=== PATIENT | female | born 2000 | race Two or more races ===

== ENCOUNTER 2023-05-29 22:30 | Observation (INO) | payer MEDICAID ==
[~2023-05-29] VITALS: Ht 154.9 cm; Wt 72.6 kg
[2023-05-30] MEDS ORDERED: LACT. RINGERS/OXYTOCIN 20UNITS 1,000 ML IV ONE (06:34)
[2023-05-30] MEDS ORDERED: LIDOCAINE 2%HCL (LOCAL ANESTH.) INJ 20ML MDV ONE (07:21)
[2023-05-30] MEDS ORDERED: METHYLERGONOVINE MALEATE 0.2 MG/ML AMP IM ONE (07:21)
[2023-05-30] MEDS ORDERED: PHISODERM TOP SOLN 240ML BTL TOP ONE (07:21)
[2023-05-31] MEDS ORDERED: IBU600T PO (02:19)
[2023-05-31] MEDS ORDERED: DOCU-265 PO (02:19)
[2023-05-31] MEDS ORDERED: PREN-96 PO (02:19)
== END 2023-05-30 00:58 | disposition home or self-care (01) ==
LOC: LDRP 22:30
PROVIDERS: ADMIT Obstetrics & Gynecology; ATTEND Obstetrics & Gynecology
DX: O60.03 Preterm labor without delivery, third trimester (principal); O26.893 Other specified pregnancy related conditions, third trimester; R10.9 Unspecified abdominal pain; Z3A.39 39 weeks gestation of pregnancy
CPT/HCPCS: 59025; 81002; 94760; G0378; J2210; J2590

== ENCOUNTER 2023-05-30 06:30 | Inpatient (IN) | payer MEDICAID ==
[~2023-05-30] VITALS: Ht 154.9 cm; Wt 65.8 kg
[2023-05-30] MEDS: LIDOCAINE 2%HCL (LOCAL ANESTH.) INJ 20ML MDV ONE (06:57)
[2023-05-30] MEDS: LACTATED RINGER'S 1,000 ML IV SCH (07:00)
[2023-05-30] MEDS ORDERED: LIDOCAINE 2%HCL (LOCAL ANESTH.) INJ 20ML MDV IJ PRN (07:00)
[2023-05-30] MEDS: METHYLERGONOVINE MALEATE 0.2 MG/ML AMP IM ONE (07:30)
[2023-05-30] MEDS: LACT. RINGERS/OXYTOCIN 20UNITS 500 ML IV ONE ×2 (07:42→07:43)
[2023-05-30] MEDS: PHISODERM TOP SOLN 240ML BTL TOP PRN (07:46)
[2023-05-30] MEDS: WITCH HAZEL-GLYCERIN PAD TOP PRN (07:46)
[2023-05-30] MEDS: DERMOPLAST 60ML BOTTLE TOP PRN (07:46)
[2023-05-30 08:12] LABS: Basophils # (auto) 0.1 10 ^3/uL (0-0.2); Basophils % (auto) 0.4 % (0.0-2.0); Eosinophils # (auto) 0 10 ^3/uL (0-0.8); Eosinophils % (auto) 0.1 % (0.0-7.0); Hemoglobin 12.1 g/dL (12.2-16.2); Lymphocytes # (auto) 1.2 10 ^3/uL (0.4-5.4); Mean Corpuscular Hemoglobin 29.3 pg (28.0-32.0); Mean Corpuscular Hgb Conc. 33.5 g/dL (32.0-36.0); Mean Corpuscular Volume 87.3 fL (80.0-100.0); Monocytes # (auto) 0.6 10 ^3/uL (0-1.3); Monocytes % (auto) 4.1 % (0.0-12.0); Neutrophils % (auto) 87.4 % (37.0-80.0); Red Blood Cells 4.13 10^6/uL (4.0-5.20); Red Cell Distribution Width 13.9 % (11.8-14.3); White Blood Cell 14.9 10^3/uL (4.4-10.8)
[2023-05-30] MEDS ORDERED: ACETAMINOPHEN 325 MG TAB PO PRN (08:15)
[2023-05-30 08:23] LABS: INR 0.92 (0.9-1.15); Partial Thromboplastin Time 30.3 SEC (24.5-34.5); Prothrombin Time 9.7 sec (9.3-11.8)
[2023-05-30 08:32] LABS: Alanine Aminotransferase 12 U/L (7-40); Albumin 3.6 g/dL (3.2-4.8); Alkaline Phosphatase 220 U/L (46-116); Anion Gap 9 (5-15); Aspartate Aminotransferase < 8 U/L (13-40); Calcium 8.8 mg/dL (8.5-10.1); Carbon Dioxide 21 mmol/L (20-30); Chloride 108 mmol/L (98-107); Glucose 82 mg/dL (74-106); Potassium 3.9 mmol/L (3.5-5.1); Sodium 138 mmol/L (136-145)
[2023-05-30 08:33] LABS: Bilirubin, Total 0.3 mg/dL (0.2-1.0); Total Protein 6.2 g/dL (5.7-8.2)
[2023-05-30 08:37] LABS: BUN/Creatinine Ratio 6.9 (10.0-20.0); Blood Urea Nitrogen < 5 mg/dL (9-23)
[2023-05-30 09:15] VITALS: RESP 18
[2023-05-30] MEDS: PRENATAL VITAMIN TAB PO SCH (10:00)
[2023-05-30 11:00] VITALS: BP 121/56; PULSE 88; RESP 16; TEMP 98.4; O2SAT 97
[2023-05-30 15:00] VITALS: BP 124/86; PULSE 104; RESP 16; TEMP 98.6; O2SAT 100
[2023-05-30 19:15] VITALS: BP 124/86; PULSE 80; RESP 16; TEMP 98.7; O2SAT 98
[2023-05-30 19:30] VITALS: BP 103/55; PULSE 80; RESP 17; TEMP 98.7; O2SAT 98
[2023-05-30] MEDS: DOCUSATE SOD 100 MG CAP PO SCH (22:23)
[2023-05-30 23:00] VITALS: BP 103/56; PULSE 67; RESP 17; TEMP 98.2; O2SAT 98
[2023-05-31] MEDS ORDERED: PREN-96 PO (02:19)
[2023-05-31] MEDS ORDERED: DOCU-265 PO (02:19)
[2023-05-31] MEDS ORDERED: IBU600T PO (02:19)
[2023-05-31 03:00] VITALS: BP 106/56; PULSE 68; RESP 17; TEMP 98.3; O2SAT 98
[2023-05-31] MEDS: IBUPROFEN 600 MG TAB PO PRN (05:42)
[2023-05-31 07:00] VITALS: BP 102/56; PULSE 87; RESP 17; TEMP 97.9; O2SAT 96
[2023-05-31 07:26] LABS: Basophils # (auto) 0.1 10 ^3/uL (0-0.2); Basophils % (auto) 0.6 % (0.0-2.0); Eosinophils # (auto) 0.1 10 ^3/uL (0-0.8); Eosinophils % (auto) 0.7 % (0.0-7.0); Hematocrit 37.1 % (36.0-46.0); Hemoglobin 12.4 g/dL (12.2-16.2); Lymphocytes # (auto) 2.3 10 ^3/uL (0.4-5.4); Lymphocytes % (auto) 17.1 % (10.0-50.0); Mean Corpuscular Hemoglobin 29.5 pg (28.0-32.0); Mean Corpuscular Hgb Conc. 33.5 g/dL (32.0-36.0); Mean Corpuscular Volume 88.1 fL (80.0-100.0); Monocytes # (auto) 0.7 10 ^3/uL (0-1.3); Monocytes % (auto) 5.3 % (0.0-12.0); Neutrophils # (auto) 10.5 10 ^3/uL (1.6-8.6); Neutrophils % (auto) 76.3 % (37.0-80.0); Red Blood Cells 4.21 10^6/uL (4.0-5.20); Red Cell Distribution Width 13.7 % (11.8-14.3); White Blood Cell 13.7 10^3/uL (4.4-10.8)
[2023-05-31 08:06] LABS: RPR Non Reactive (Non Reactive)
== END 2023-05-31 12:30 | disposition home or self-care (01) | DRG 542 ==
LOC: LDRP 06:30 → UNDOADMIN 06:30 → LDRP 06:57
PROVIDERS: ADMIT Obstetrics & Gynecology; ATTEND Obstetrics & Gynecology
PROC: 10E0XZZ Delivery of Products of Conception, External Approach (ICD-10-PCS; principal; 2023-05-30)
PROC: 0DQR0ZZ Repair Anal Sphincter, Open Approach (ICD-10-PCS; 2023-05-30)
DX: O76 Abnormality in fetal heart rate and rhythm complicating labor and delivery (principal); O70.20 Third degree perineal laceration during delivery, unspecified; Z37.0 Single live birth; Z3A.39 39 weeks gestation of pregnancy
CPT/HCPCS: 36415; 59025; 59409; 80053; 85025; 85610; 85730; 86592; 86850; 86900; 86901; 94760; 96360; 96361; G0378

== ENCOUNTER → 2023-11-01 | Outpatient (CLI) | payer MEDICAID ==
[~2023-11-01] MED LIST: DOCU-265 PO; IBU600T PO; PREN-96 PO
[2023-11-01 09:07] LABS: Basophils # (auto) 0 10 ^3/uL (0-0.2); Basophils % (auto) 0.6 % (0.0-2.0); Eosinophils # (auto) 0.2 10 ^3/uL (0-0.8); Eosinophils % (auto) 2.5 % (0.0-7.0); Hematocrit 38.6 % (36.0-46.0); Hemoglobin 13.3 g/dL (12.2-16.2); Lymphocytes # (auto) 2.3 10 ^3/uL (0.4-5.4); Lymphocytes % (auto) 32.2 % (10.0-50.0); Mean Corpuscular Hemoglobin 30.1 pg (28.0-32.0); Mean Corpuscular Hgb Conc. 34.5 g/dL (32.0-36.0); Mean Corpuscular Volume 87.3 fL (80.0-100.0); Monocytes # (auto) 0.4 10 ^3/uL (0-1.3); Neutrophils # (auto) 4.3 10 ^3/uL (1.6-8.6); Neutrophils % (auto) 58.7 % (37.0-80.0); Platelet Count (auto) 192 10^3/uL (140-450); Red Blood Cells 4.42 10^6/uL (4.0-5.20); Red Cell Distribution Width 13.2 % (11.8-14.3); White Blood Cell 7.3 10^3/uL (4.4-10.8)
== END | disposition home or self-care (01) ==
LOC: LAB 08:49
PROVIDERS: ATTEND Obstetrics & Gynecology
DX: Z01.419 Encounter for gynecological examination (general) (routine) without abnormal findings (principal)
CPT/HCPCS: 36415; 84702; 85025; 87086

== ENCOUNTER → 2024-06-06 | Outpatient (CLI) | payer MEDICAID ==
[2024-06-06 09:11] LABS: Basophils # (auto) 0 10 ^3/uL (0-0.2); Basophils % (auto) 0.4 % (0.0-2.0); Eosinophils # (auto) 0.2 10 ^3/uL (0-0.8); Hematocrit 40.4 % (36.0-46.0); Hemoglobin 13.7 g/dL (12.2-16.2); Lymphocytes # (auto) 1.7 10 ^3/uL (0.4-5.4); Lymphocytes % (auto) 19.9 % (10.0-50.0); Mean Corpuscular Hemoglobin 29.1 pg (28.0-32.0); Mean Corpuscular Hgb Conc. 33.9 g/dL (32.0-36.0); Mean Corpuscular Volume 85.7 fL (80.0-100.0); Monocytes # (auto) 0.5 10 ^3/uL (0-1.3); Monocytes % (auto) 6.2 % (0.0-12.0); Neutrophils # (auto) 5.9 10 ^3/uL (1.6-8.6); Neutrophils % (auto) 71.5 % (37.0-80.0); Nucleated Red Blood Cells % 0.1 %; Platelet Count (auto) 177 10^3/uL (140-450); Red Blood Cells 4.71 10^6/uL (4.0-5.20); Red Cell Distribution Width 13.3 % (11.8-14.3); White Blood Cell 8.3 10^3/uL (4.4-10.8)
[2024-06-06 09:14] LABS: Urine Bacteria FEW /hpf (None Seen); Urine Blood TRACE /uL (Negative); Urine Clarity Turbid (Clear); Urine Color Yellow (Yellow); Urine Mucus FEW (None Seen); Urine Protein, UAD TRACE (Negative); Urine Specific Gravity 1.029 (1.001-1.035); Urine Squamous Epithelial Cell MOD /hpf (<5); Urine Urobilinogen Normal (Negative); Urine WBC 13 /HPF (0-5); Urine pH 5.5 (5.0-9.0)
[2024-06-06 09:41] LABS: Alanine Aminotransferase 19 U/L (7-40); Albumin 4.8 g/dL (3.2-4.8); Alkaline Phosphatase 106 U/L (46-116); Anion Gap 8 (5-15); Aspartate Aminotransferase 14 U/L (13-40); BUN/Creatinine Ratio 15.1 (10.0-20.0); Bilirubin, Total 0.5 mg/dL (0.2-1.0); Blood Urea Nitrogen 11 mg/dL (9-23); Calcium 9.5 mg/dL (8.7-10.4); Carbon Dioxide 24 mmol/L (20-31); Chloride 109 mmol/L (98-107); Cholesterol 208 mg/dL (< 200); Glucose 95 mg/dL (74-106); HDL Cholesterol 55 mg/dL (40-59); LDL Cholesterol 143 mg/dL (< 100); Potassium 3.5 mmol/L (3.5-5.1); Sodium 141 mmol/L (136-145); Total Protein 7.7 g/dL (5.7-8.2); Triglycerides 135 mg/dL (< 150)
[2024-06-06 10:56] LABS: Folate (Folic Acid) 23.45 ng/mL (>5.38)
[2024-06-06 10:57] LABS: Ferritin 51.2 ng/mL (10-291)
== END | disposition home or self-care (01) ==
LOC: LAB 08:49
PROVIDERS: ATTEND Internal Medicine
DX: E66.9 Obesity, unspecified (principal)
CPT/HCPCS: 36415; 80053; 80061; 81001; 82043; 82306; 82607; 82728; 82746; 83036; 83540; 84443; 85025